=== PATIENT | male | born 1950 | race Caucasian/White ===

== ENCOUNTER 2018-07-19 10:02 | Inpatient (IN) | payer OTHER ==
[2018-07-08 09:06] LABS: ABSOLUTE BASOPHILS 0.1 thou/uL (0.0-0.2); ABSOLUTE EOSINOPHILS 0.1 thou/uL (0.0-0.7); ABSOLUTE LYMPHOCYTES 1.4 thou/uL (0.8-5.3); ABSOLUTE MONOCYTES 0.5 thou/uL (0.0-1.2); ABSOLUTE NEUTROPHILS 2.4 thou/uL (1.6-8.1); BASOPHILS 1.4 %; HEMATOCRIT 44.7 % (42.0-52.0); HEMOGLOBIN 15.4 gm/dL (14.0-18.0); LYMPHOCYTES 30.5 %; MCH 33.2 pg (26.0-34.0); MCHC 34.4 g/dL (28.0-37.0); MCV 96.6 fL (80.0-100.0); MONOCYTES 10.9 %; MPV 9.3 fl. (7.2-11.1); NUCLEATED RBCS 0 /100WBC; PLATELET COUNT* 152 thou/uL (150-400); POLYS 54.2 %; RBC 4.63 mil/uL (4.50-6.00); RDW-CV 13.8 % (10.5-14.5); WBC 4.5 thou/uL (4.0-11.0)
[2018-07-08 09:18] LABS: CALCIUM 9.4 mg/dL (8.5-10.1); CREATININE 1.2 mg/dL (0.6-1.3); POTASSIUM 4.5 mmol/L (3.5-5.1)
[2018-07-08 09:21] LABS: APTT 26.6 Seconds (25.0-31.3); PROTIME 10.2 Seconds (9.20-11.50)
[2018-07-08 09:23] LABS: ALBUMIN 4.5 g/dL (3.4-5.0); TOTAL BILIRUBIN 0.7 mg/dL (<0.1-1.0)
[2018-07-08 10:37] LABS: ESR (SEDRATE) 10 mm/hr (0-20)
--- NOTE | 2018-07-08 12:24 | EKG ---
[place] [address] ELECTROCARDIOGRAM REPORT Name: THAI CHAPARRO Room: PRE [facility]#: [id number] Admission: Attend Phys: Harsha Manriquez DO Discharge: Date of : 48 Report #: [id number] THIS REPORT FOR: //name// 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1950 Requested By: Harsha Manriquez Order Number: [id number] Reading MD: Sal Rogers Measurements Intervals [place] Rate: 63 P: 50 VT: 166 QRS: 81 QRSD: 106 T: -12 QT: 407 QTc: 417 Interpretive Statements Sinus rhythm Borderline right axis deviation Low voltage, precordial leads Borderline repolarization abnormality Baseline wander in lead(s) II,III Compared to ECG 02/16/2008 03:20:28 no change Electronically Signed On 07-08-2018 12:24:10 SENIOR INFORMATICA DEVELOPER by Sal Rogers [email or web address] <ELECTRONICALLY SIGNED> By: Sal Rogers MD, [facility] 07/08/18 1224 0906 [id number] Sal Rogers MD, [facility] /EPI
[2018-07-08 21:07] LABS: GLYCOHEMOGLOBIN (HGB A1C) 5.6 % (4.8-5.6)
[~2018-07-19] VITALS: Ht 177.8 cm; Wt 130.2 kg
[~2018-07-19 10:02] MED LIST: ALEVE220 MG PO; ASPIR 8181 M1 PO; ASPIR 8181 MG PO; AVALIDE 150-121 EACH PO; CENTRUM COMPLE1 EACH PO; DEPO-TESTO100 MG/1 M IM; ENOXAPARIN100 MG/11 SUBQ; FLOMAX0.4 MG PO; MAXZIDE-25 MG1 EACH PO; MULTIVITAMINS1 EAC7 PO; NORVASC5 M1 PO; PAXIL 20 MG TAB20 M1 PO; PERCOCET PO; PROBENECID500 MG PO; PROSCAR 5MG TABL5 MG PO; SIMVASTATIN20 MG PO
[2018-07-19 11:00] VITALS: BP 129/79
--- NOTE | 2018-07-19 18:07 | NUR ---
PATIENT ARRIVED TO UNIT AT 1730. ALERT AND ORIENTED X4. IV IS PATENT AND INFUSING. PAIN BEING MANAGED WITH IV AND PO MEDICATION GIVEN IN PACU. DENIES NAUSEA. TOLERATING DIET. DRESSING IS C/D/I. JESUSITA HOSE IN PLACE. SCD'S IN PLACE. VSS ON 2L O2. CALL LIGHT IS WITHIN REACH. NURSING WILL CONTINUE TO MONITOR.
[2018-07-19 19:45] VITALS: BP 124/58
[2018-07-20 00:26] VITALS: BP 112/69
--- NOTE | 2018-07-20 02:38 | NUR ---
INITAL ASSESMENT COMPLETED AT 194. PT POST OP RIGHT TOTAL KNEE. BLOOD PRESSURE AND HEART RATE WITHIN NORMAL LIMITS. PT ON OXYGEN AT 2 LITERS PER NASAL CANULA. JESUSITA HOSE AND SCD'S IN PLACE. ICE PACK TO RIGHT RIGHT KNEE. PT TAKING OXYCODONE FOR PAIN WITH GOOD RESULTS. CALL LIGHT IN REACH, PT DEMONSTRATES PROPER USE.
[2018-07-20 03:58] LABS: HEMOGLOBIN 13.1 gm/dL (14.0-18.0)
[2018-07-20 04:09] VITALS: BP 110/62
--- NOTE | 2018-07-20 06:48 | NUR ---
PT TOLERATING PO FOOD AND FLUIDS WITHOUT DIFFICULTY. NO NAUSEA OR VOMITING DURING SHIFT. PT TAKING PO PAIN MEDS DURING SHIFT, NO IV NARCOTICS GIVEN. BLOOD PRESSURE HEART RATE, AND TEMPERATURE WITHIN NORMAL LIMITS DURING SHIFT. PT MAINTAINED BEDREST THROUGHOUT NIGHT. PT ON O2 AT 2 LITERS WHEN NOT USING HOME CPAP TO MAINTAIN O2 SAT > 94%.
[2018-07-20 08:00] VITALS: BP 122/62
[2018-07-20 10:55] VITALS: BP 122/62
--- NOTE | 2018-07-20 12:30 | NUR ---
SPOKE WITH PT.AND . HE WAS ALERT AND ORIENTED. HE LIVES AT HOME WITH HIS AND SHE WILL BE WITH HIM TO ASSIST AT DISCHARGE. HE IS NORMALLY INDEPENDENT . USES NO DME BUT DOES HAVE A FRONT WHEEL WALKER FROM HOME THAT IS HERE IN ROOM. CM CALLED IN PRESCRIPTION FOR ELIQUIS WRITTEN TO [facility] [address] OF [employer] [phone]. COPAY IS $21. PT.INFORMED. PT.THINKS HE MAY WANT TO DO HOME HEALTH INSTEAD OF OUTPT.THERAPY. HE IS WORRIED ABOUT THERAPY AND GETTING THERE IF THE WEATHER GETS BAD. CM HAD [facility] CHECK HIS BENEFIT FOR HH. [facility] CALLED BACK AND HE DOES HAVE BENEFIT FOR HH. THERE IS NO COPAY. INFORMED PT. HE CHOSE HOME [facility] FOR 2 WEEKS. SAID HE HAS TO PAY $40 EACH TIME HE GOES IN FOR OUTPT.THERAPY.
[2018-07-20] MEDS ORDERED: ELIQUIS2.5 MG PO (14:44)
[2018-07-20] MEDS ORDERED: OXYCODONE HCL10 MG PO (14:51)
--- NOTE | 2018-07-20 14:56 | NUR ---
THIS CM FAXED D/C ORDERS, MEDICATION LIST, POST OP, AND H&P TO [facility], [facility] @ [phone].
[2018-07-20 15:10] VITALS: BP 122/62
--- NOTE | 2018-07-20 15:42 | NUR ---
RECIEVED O.T. ORDERS. WILL DEFER TO P.T. AT THIS TIME. PLEASE ORDER FURTHER O.T. SERVICES IF NEEDED.
[2018-07-20 15:45] VITALS: BP 122/62
--- NOTE | 2018-07-20 16:40 | NUR ---
PT IS ALERT AND ORIENTED X 4. INDICATES RIGHT KNEE PAIN-09/15. PAIN MANAGED WITH PO OXY IR. DENIES NAUSEA. MEPILEX DRESSING ON RIGHT KNEE-C/D/I. ICE PACK IN USE. JESUSITA HOSE ON BILAT. SCDS IN PLACE. PT ON RA. IVF DISCONTINUED. PT PARTICIPATED WITH THERAPIES DURING DAY. UP TO CHAIR AND BATHROOM WITH SBA WITH WALKER AND GAIT BELT. DISCHARGE INSTRUCTIONS AND PRESCRIPTIONS GIVEN. IV REMOVED. PT ALONG WITH PERSONAL BELONGINGS LEFT UNIT BY WHEEL CHAIR WITH NURSING STAFF TO LEAVE WITH SPOUSE BY PRIVATE CAR @ [id number].
== END 2018-07-20 15:45 | disposition home health service (06) | DRG 470 ==
LOC: M.SUR 10:02 → M.ORTHSURG 16:42
PROVIDERS: Orthopaedic Surgery; ADMIT Internal Medicine
PROC: 3E0T3BZ Introduction of Anesthetic Agent into Peripheral Nerves and Plexi, Percutaneous Approach (ICD-10-PCS; principal; 2018-07-19)
PROC: 0SRC0L9 Replacement of Right Knee Joint with Medial Unicondylar Synthetic Substitute, Cemented, Open Approach (ICD-10-PCS; principal; 2018-07-19)
DX: M17.11 Unilateral primary osteoarthritis, right knee (principal); D62 Acute posthemorrhagic anemia; I10 Essential (primary) hypertension; G47.33 Obstructive sleep apnea (adult) (pediatric); Z86.718 Personal history of other venous thrombosis and embolism; Z90.49 Acquired absence of other specified parts of digestive tract; Z79.82 Long term (current) use of aspirin; Z79.899 Other long term (current) drug therapy

== ENCOUNTER 2018-08-24 12:07 | Inpatient (IN) | payer OTHER ==
[~2018-08-24] VITALS: Ht 180.3 cm; Wt 124.7 kg
[~2018-08-24 12:07] MED LIST changes: +ELIQUIS2.5 MG PO; +OXYCODONE HCL10 MG PO
[2018-08-24 12:16] VITALS: BP 109/65
[2018-08-24 12:55] LABS: HEMATOCRIT 38.7 % (42.0-52.0); HEMOGLOBIN 13.4 gm/dL (14.0-18.0); MCHC 34.6 g/dL (28.0-37.0); MCV 92.7 fL (80.0-100.0); MPV 8.3 fl. (7.2-11.1); NUCLEATED RBCS 0 /100WBC; PLATELET COUNT* 155 thou/uL (150-400); RBC 4.17 mil/uL (4.50-6.00); WBC 3.4 thou/uL (4.0-11.0)
[2018-08-24 13:07] LABS: APTT 30.8 Seconds (25.0-31.3); PROTIME 10.2 Seconds (9.20-11.50)
[2018-08-24 13:10] LABS: BE 1.5 mmol/L (-2 to +3)
[2018-08-24 13:13] LABS: ANION GAP 11 mmol/L (7-16); BUN 15 mg/dL (7-18); CALCIUM 9.1 mg/dL (8.5-10.1); CHLORIDE 99 mmol/L (98-107); CO2 26 mmol/L (21-32); CREATININE 1.5 mg/dL (0.6-1.3); GLUCOSE 105 mg/dL (70-99); POTASSIUM 4.1 mmol/L (3.5-5.1); SODIUM 136 mmol/L (136-145); TROPONIN-I LEVEL <0.06 ng/mL (<0.06)
[2018-08-24 13:15] LABS: ALBUMIN 3.9 g/dL (3.4-5.0); ALKALINE PHOSPHATASE 139 U/L (46-116); NT-PRO BRAIN NAT PEPTIDE 68 pg/mL (<300); SGOT 36 U/L (15-37); SGPT 65 U/L (30-65); TOTAL BILIRUBIN 0.9 mg/dL (<0.1-1.0); TOTAL PROTEIN 7.8 g/dL (6.4-8.2)
[2018-08-24 13:15] LABS: PCO2 < 17.0 mmHg (35.0-45.0); PO2 131.8 mmHg (75.0-100.0); pH 7.674 (7.340-7.450)
[2018-08-24 13:20] LABS: ABSOLUTE BASOPHILS 0.1 thou/uL (0.0-0.2); ABSOLUTE EOSINOPHILS 0.2 thou/uL (0.0-0.7); ABSOLUTE LYMPHOCYTES 1.1 thou/uL (0.8-5.3); ABSOLUTE MONOCYTES 0.4 thou/uL (0.0-1.2); ABSOLUTE NEUTROPHILS 1.5 thou/uL (1.6-8.1); PLATELET ESTIMATE ADEQUATE
[2018-08-24 14:04] LABS: INFLUENZA B ANTIGEN None Detected (None Detect)
[2018-08-24 15:35] VITALS: BP 110/66
--- NOTE | 2018-08-24 16:43 | NUR ---
PATIENT CAME TO THE FLOOR FROM THE ER IN STABLE CONDITION VIA CART. VITAL SIGNS STABLE ON ROOM AIR. ROOM ORIENTATION AND ADMISSION ASSESSMENT DONE. QUESTIONS ANSWERED FOR PATIENT AND . IV FLUIDS RUNNING IN RIGHT AC. WILL CONTINUE TO MONITOR.
--- NOTE | 2018-08-24 17:13 | EKG ---
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
--- NOTE | 2018-08-24 17:47 | NUR ---
PATIENT IS ALERT AND ORIENTED SINCE COMING TO THE FLOOR FROM THE ER IN STABLE CONDITION. PATIENT IS CONTACT PRECAUTION FOR FLU POSITIVE. VITAL SIGNS STABLE ON ROOM AIR. CALL LIGHT IS IN REACH WILL CONTINUE TO MONITOR.
[2018-08-24 20:00] VITALS: BP 118/60
[2018-08-25 03:47] VITALS: BP 116/57
--- NOTE | 2018-08-25 05:30 | NUR ---
PATIENT SLEPT WELL DURING THIS SHIFT. PT DENIES PAIN/NAUSEA ON THIS SHIFT. PT WITH ANTIBIOTICS INFUSING PER DR ORDER. PT SALINE LOCKED. PT UP AD KARL IN ROOM. PT REMAINS IN DROPLET ISOLATION. WILL CONTINUE TO MONITOR.
[2018-08-25 08:05] VITALS: BP 104/51
[2018-08-25 16:00] VITALS: BP 111/69
[2018-08-25 16:42] VITALS: BP 111/69
[2018-08-25] MEDS ORDERED: TAMIFLU75 MG PO (16:47)
[2018-08-25] MEDS ORDERED: CEFDINIR300 MG PO (16:49)
--- NOTE | 2018-08-25 17:25 | NUR ---
PATIENT DISCHARGED TO HOME. DISCHARGE PAPERS REVIEWED AND SIGNED. PRESCRIPTIONS AND INFORMATION SHEETS GIVEN. IV REMOVED. PATIENT DENIES ANY FURTHER NEEDS. PATIENT TAKEN BY WHEELCHAIR TO EXIT. LEFT WITH .
--- NOTE | 2018-08-26 08:13 | NUR ---
P.T. ORDERS RECEIVED 08/24/18 AT 1556. PT DISCHARGED 08/25/18 PRIOR TO COMPLETION OF P.T. EVAL.
== END 2018-08-25 17:25 | disposition home or self-care (01) | DRG 871 ==
LOC: M.ERS 12:07 → M.TBA-ER 14:36 → M.3W 14:36
PROVIDERS: Personal Emergency Response Attendant; ADMIT Family Medicine
DX: A41.89 Other specified sepsis (principal); J10.00 Influenza due to other identified influenza virus with unspecified type of pneumonia; E87.3 Alkalosis; I10 Essential (primary) hypertension; E78.5 Hyperlipidemia, unspecified; Z86.718 Personal history of other venous thrombosis and embolism; Z90.49 Acquired absence of other specified parts of digestive tract; Z79.01 Long term (current) use of anticoagulants; Z79.899 Other long term (current) drug therapy

== ENCOUNTER 2020-03-10 17:57 | Emergency (ER) | payer OTHER ==
[~2020-03-10] VITALS: Ht 177.8 cm; Wt 120.2 kg
[~2020-03-10 17:57] MED LIST changes: +CEFDINIR300 MG PO; +TAMIFLU75 MG PO
[2020-03-10] MEDS ORDERED: NORVASC 2.5 MG2.5 M1 PO (18:09)
[2020-03-10] MEDS ORDERED: ELIQUIS5 MG PO (18:09)
[2020-03-10] MEDS ORDERED: AVAPRO75 MG PO (18:10)
[2020-03-10] MEDS ORDERED: PAXIL20 MG PO (18:10)
[2020-03-10] MEDS ORDERED: CLOBETASOL EMU100 GM TP (18:10)
[2020-03-10] MEDS ORDERED: PROBENECID500 MG PO (18:11)
[2020-03-10] MEDS ORDERED: ZOCOR20 MG PO (18:11)
[2020-03-10] MEDS ORDERED: KEFLEX500 M1 PO (18:59)
[2020-03-10] MEDS ORDERED: NORCO 5-325 TA1 EAC2 PO (19:04)
[2020-03-10 19:22] VITALS: BP 134/70
== END 2020-03-10 19:23 | disposition home or self-care (01) ==
LOC: M.ERS 17:57
DX: S61.214A Laceration without foreign body of right ring finger without damage to nail, initial encounter (principal); S61.210A Laceration without foreign body of right index finger without damage to nail, initial encounter; I10 Essential (primary) hypertension; Z90.49 Acquired absence of other specified parts of digestive tract; W01.0XXA Fall on same level from slipping, tripping and stumbling without subsequent striking against object, initial encounter; Y93.89 Activity, other specified; Y92.89 Other specified places as the place of occurrence of the external cause; Y99.8 Other external cause status

== ENCOUNTER → 2020-03-21 | Emergency (ER) | payer OTHER ==
[~2020-03-21] VITALS: Ht 177.8 cm; Wt 120.2 kg
[~2020-03-21] MED LIST changes: +AVAPRO75 MG PO; +CLOBETASOL EMU100 GM TP; +ELIQUIS5 MG PO; +KEFLEX500 M1 PO; +NORCO 5-325 TA1 EAC2 PO; +NORVASC 2.5 MG2.5 M1 PO; +PAXIL20 MG PO; +ZOCOR20 MG PO
== END ==
LOC: M.ERS 12:09
DX: S61.212D Laceration without foreign body of right middle finger without damage to nail, subsequent encounter (principal); S61.412D Laceration without foreign body of left hand, subsequent encounter; I10 Essential (primary) hypertension; Z90.49 Acquired absence of other specified parts of digestive tract; Z96.651 Presence of right artificial knee joint; X58.XXXD Exposure to other specified factors, subsequent encounter